=== PATIENT | female | born 1955 | race Caucasian/White ===

== ENCOUNTER 2016-10-29 18:07 | Emergency (ER) | payer BC ==
[~2016-10-29] VITALS: Ht 160 cm; Wt 59.0 kg
--- NOTE | 2016-10-29 18:18 | NUR ---
PT DOES NOT REMEMBER HER HOME MEDICATION NAMES. DR PALMER NOTIFIED.
[2016-10-29] MEDS ORDERED: ONDANSETRON ODT 4 MG TAB.RAPDIS SL ONE (18:45)
[2016-10-29] MEDS ORDERED: OXYCODONE/APAP 5-325 MG TABLET PO ONE (18:45)
[2016-10-29] MEDS ORDERED: OXYCODONE/APAP 5-325 MG TABLET ONE (18:50)
[2016-10-29] MEDS ORDERED: ONDANSETRON ODT 4 MG TAB.RAPDIS ONE (18:50)
--- NOTE | 2016-10-29 19:02 | NUR ---
Assumed care of patient from DEBRA Buckner. Patient is currently in Xray
--- NOTE | 2016-10-29 19:18 | NUR ---
Returned from X-Ray. Stable condition. no distress noted.
[2016-10-29] MEDS ORDERED: IV NORMAL SALINE 500 ML BAG IV ONE (19:45)
[2016-10-29] MEDS ORDERED: HYDROMORPHONE 1 MG/1 ML DISP.SYRIN IV ONE ×3 (20:00→22:30)
[2016-10-29 20:03] LABS: BASOPHILS % (AUTO) 0.2 % (0.0-2.0); EOSINOPHILS # (AUTO) 0.1 K/uL (0.0-0.7); HEMATOCRIT 38.6 % (37-47); LYMPHOCYTES # (AUTO) 1.2 K/UL (0.8-4.8); LYMPHOCYTES % (AUTO) 14.3 % (20.5-51.5); MEAN CORPUSCULAR HEMOGLOBIN 28.8 UUG (27.0-31.0); MEAN CORPUSCULAR HGB CONC 34 g/dL (32.0-37.0); MEAN CORPUSCULAR VOLUME 85.6 FL (81.0-99.0); MONOCYTES # (AUTO) 0.3 K/UL (0.1-1.30); MONOCYTES % (AUTO) 3.9 % (0.0-11.0); NEUTROPHILS # (AUTO) 6.6 K/UL (1.8-8.9); NEUTROPHILS % (AUTO) 80.6 % (38.5-71.5); PLATELET COUNT (AUTO) 189 K/UL (150-450); RED BLOOD CELL COUNT(AUTO) 4.51 MIL/UL (4.2-5.4); WHITE BLOOD COUNT (AUTO) 8.2 K/UL (4.0-11.2)
[2016-10-29 20:07] LABS: CALCIUM 9.2 mg/dL (8.5-10.1); POTASSIUM 3.8 mmol/L (3.5-5.1)
[2016-10-29] MEDS ORDERED: HYDROMORPHONE 1 MG/1 ML DISP.SYRIN ONE ×3 (20:11→22:41)
[2016-10-29 20:13] LABS: BILIRUBIN,DIRECT 0.1 mg/dL (0.0-0.2); BILIRUBIN,TOTAL 0.4 mg/dL (0.2-1.0); TOTAL PROTEIN, SERUM 7.8 g/dL (6.4-8.2)
--- NOTE | 2016-10-29 20:26 | NUR ---
Recieved call from [facility], facility will accept patient. Transportation and bed placement pending. Awaiting call back.
--- NOTE | 2016-10-29 20:27 | NUR ---
Per patients primary MD. Pace, patient needs to go to [facility], Cancel request for [facility]. Pending call back from Dr Pace.
--- NOTE | 2016-10-29 21:22 | NUR ---
Per [facility], unable to accept patient due to Insurance being capitated to [facility]. Contacted property insurance agent. Pending call back for clarrification.
--- NOTE | 2016-10-29 22:50 | NUR ---
[facility] Transfer Center calledAriel in transfer center states patient is no longer capitated to [facility]. [facility] cannot accept the patient for admission
--- NOTE | 2016-10-29 23:05 | NUR ---
Call placed to [facility], explanation provided to Transport Center. Transport Center will call back with confirmation if patient is accepted. Pending call back.
--- NOTE | 2016-10-29 23:48 | NUR ---
Spoke with Nadeen at [facility]. Pending call back for Bed placement.
[2016-10-30 00:06] LABS: *BILIRUBIN,URIN NEGATIVE (NEGATIVE); *BLOOD, URINE Trace-intact (NEGATIVE); *CLARITY,URINE CLEAR (CLEAR); *COLOR,URINE YELLOW (YELLOW); *KETONES,URINE NEGATIVE (NEGATIVE); *PROTEIN,URINE NEGATIVE (NEGATIVE); *UROBILINOGEN,URINE 0.2 E.U./dl (NORMAL); LEUKOCYTE ESTERASE ,URINE NEGATIVE (NEGATIVE); NITRITE, URINE NEGATIVE (NEGATIVE); PH,URINE 5.5 (5.0-8.0); UGLUCOSE NEGATIVE (NEGATIVE)
[2016-10-30 00:10] LABS: RBC,URINE 0-3 /HPF (0-3); WBC,URINE 0-3 /HPF (0-3)
[2016-10-30 00:11] LABS: BACTERIA,URINE FEW /HPF (NONE SEEN); SQUAMOUS EPITHELIAL CELL,UR FEW /HPF (NONE SEEN)
[2016-10-30] MEDS ORDERED: HYDROMORPHONE 1 MG/1 ML DISP.SYRIN ONE ×2 (00:11→01:30)
[2016-10-30] MEDS ORDERED: ONDANSETRON IV *ER 4 MG/2 ML VIAL IV ONE (01:30)
[2016-10-30] MEDS ORDERED: HYDROMORPHONE 1 MG/1 ML DISP.SYRIN IV ONE ×2 (01:30)
[2016-10-30] MEDS ORDERED: ONDANSETRON 4 MG/2 ML VIAL ONE (01:30)
--- NOTE | 2016-10-30 01:34 | NUR ---
Patient Tranfers to outside Facility Physician: Dr renae Location: [facility] Report given to Kimberly RICHARDSONsupercharger repair supervisor nurse at [facility]. Dr Jovanny ELAINE MD aware of patient coming. Patient stable at time of transfer. All pain needs addressed. All belongings with patient. Transferred via [facility] ambulance.
== END 2016-10-30 01:42 | disposition short-term general hospital (02) ==
LOC: ER 18:09
DX: S72.002A Fracture of unspecified part of neck of left femur, initial encounter for closed fracture (principal); S52.532A Colles' fracture of left radius, initial encounter for closed fracture; S52.612A Displaced fracture of left ulna styloid process, initial encounter for closed fracture; I45.2 Bifascicular block; I34.1 Nonrheumatic mitral (valve) prolapse; Z88.2 Allergy status to sulfonamides; W18.30XA Fall on same level, unspecified, initial encounter; Y93.89 Activity, other specified; Y99.8 Other external cause status; Y92.89 Other specified places as the place of occurrence of the external cause
CPT/HCPCS: 29125; 36415; 71010; 72170; 73090; 73110; 73501; 73551; 73610; 80048; 80076; 81001; 85025; 85730; 93005; 96361; 96374; 96375; 96376; 99285; A4663; J1170 ×4; J2405; J7040; Q0162